=== PATIENT | male | born 1980 | race African-American/Black ===

== ENCOUNTER 2017-04-07 08:51 | Emergency (ER) | payer OTHER ==
[~2017-04-07] VITALS: Ht 188 cm; Wt 105.0 kg
[~2017-04-07 08:51] MED LIST: ALBUTEROL; IPRA3AMP IH
[2017-04-07] MEDS: ALBUTEROL (0.083%) 2.5MG/3ML NEB HHN SCH ×6 (09:00→11:59)
[2017-04-07] MEDS ORDERED: METHYLPREDNISOLONE SOD SUCC 125 MG/2 ML VIAL IV STA (09:01)
[2017-04-07] MEDS ORDERED: MAGNESIUM 2 G PREMIX 50 ML IV ONE (09:30)
[2017-04-07 09:37] LABS: BASOPHILS % 0.4 % (0.0-2.0); EOSINOPHILS % 5.3 % (0.0-5.0); HEMOGLOBIN. 13.4 g/dL (14.0-18.0); LYMPHOCYTES % 38.2 % (20.0-50.0); MEAN CORPUSCULAR HEMOGLOBIN 28.1 pg (28.0-32.0); MEAN CORPUSCULAR VOLUME 83.5 fL (80.0-94.0); MEAN PLATELET VOLUME 8.8 fl (7.4-10.4); MONOCYTES % 10.5 % (2.0-8.0); NEUTROPHILS % 45.6 % (40.0-76.0); PLATELET 270 x1000/uL (130-400); RED BLOOD CELL COUNT 4.79 mill/uL (4.7-6.1); RED CELL DISTRIBUTION WIDTH 13.5 % (11.6-14.6)
[2017-04-07 09:46] LABS: PROTHROMBIN TIME 10.4 sec
[2017-04-07 09:53] LABS: CARBON DIOXIDE 28 mEq/L (21-32); CHLORIDE 109 mEq/L (98-107)
[2017-04-07 12:18] VITALS: BP 142/80
== END 2017-04-07 14:30 | disposition home or self-care (01) ==
LOC: ER 09:21
DX: J45.901 Unspecified asthma with (acute) exacerbation (principal); R03.0 Elevated blood-pressure reading, without diagnosis of hypertension
CPT/HCPCS: 36415; 71010; 80053; 85025; 85610; 93005; 94640; 96365; 96375; 99285; J2930; J3475; J7611; Z7610

== ENCOUNTER 2017-07-31 05:12 | Emergency (ER) | payer OTHER ==
[~2017-07-31] VITALS: Ht 188 cm; Wt 105.0 kg
[~2017-07-31 05:12] MED LIST changes: -IPRA3AMP IH; +IPRA3AMP9 IH
[2017-07-31] MEDS ORDERED: IPRATROPIUM BROMIDE (0.02%) 0.5MG/2.5ML NEB HHN STA (05:29)
[2017-07-31] MEDS ORDERED: ALBUTEROL (0.083%) 2.5MG/3ML NEB HHN STA (05:29)
[2017-07-31] MEDS ORDERED: METHYLPREDNISOLONE SOD SUCC 125 MG/2 ML VIAL IV STA (05:29)
[2017-07-31] MEDS ORDERED: MAGNESIUM 2 G PREMIX 50 ML IV ONE (05:30)
[2017-07-31 06:03] LABS: BASOPHILS % 0.7 % (0.0-2.0); EOSINOPHILS % 4.3 % (0.0-5.0); HEMATOCRIT. 42.5 % (42.0-52.0); LYMPHOCYTES % 46.5 % (20.0-50.0); MEAN CORPUSCULAR HEMOGLOBIN 28.4 pg (28.0-32.0); MEAN CORPUSCULAR VOLUME 85.9 fL (80.0-94.0); MONOCYTES % 9.4 % (2.0-8.0); NEUTROPHILS % 39.1 % (40.0-76.0); PLATELET 234 x1000/uL (130-400); RED BLOOD CELL COUNT 4.95 mill/uL (4.7-6.1); RED CELL DISTRIBUTION WIDTH 13.7 % (11.6-14.6)
[2017-07-31 06:08] LABS: CARBON DIOXIDE 24 mEq/L (21-32); CHLORIDE 110 mEq/L (98-107)
[2017-07-31] MEDS ORDERED: SODIUM CHLORIDE 0.9% 1,000 ML IV SCH (06:15)
[2017-07-31 07:20] VITALS: BP 155/73
== END 2017-07-31 08:07 | disposition left against medical advice (07) ==
LOC: ER 05:12 → CANRESERV 07:01 → ENRESERV 07:01 → ER 08:07 → CANBEDREQ 08-01 10:28
DX: J96.90 Respiratory failure, unspecified, unspecified whether with hypoxia or hypercapnia (principal); J45.902 Unspecified asthma with status asthmaticus
CPT/HCPCS: 36415; 71010; 80048; 83605; 85025; 87040; 93005; 94640; 96365; 96375; 99285; J2930; J3475; J7611; Z7610; J7030

== ENCOUNTER 2017-09-14 11:44 | Emergency (ER) | payer OTHER ==
[~2017-09-14] VITALS: Ht 185.4 cm; Wt 104.0 kg
[2017-09-14] MEDS ORDERED: ALBUTEROL (0.083%) 2.5MG/3ML NEB HHN STA ×3 (12:18→14:58)
[2017-09-14] MEDS ORDERED: METHYLPREDNISOLONE SOD SUCC 125 MG/2 ML VIAL IV STA (12:18)
[2017-09-14] MEDS ORDERED: IPRATROPIUM BROMIDE (0.02%) 0.5MG/2.5ML NEB HHN STA ×3 (12:18→14:58)
[2017-09-14] MEDS ORDERED: MAGNESIUM 2 G PREMIX 50 ML IV STA (12:38)
[2017-09-14] MEDS ORDERED: METHYLPREDNISOLONE SOD SUCC 125 MG/2 ML VIAL IV NR (12:45)
[2017-09-14 15:00] VITALS: BP 134/82
[2017-09-14] MEDS ORDERED: ALBUTEROL (0.5%) 2.5MG/0.5ML NEB HHN ONE (15:27)
[2017-09-14] MEDS ORDERED: IPRATROPIUM BROMIDE (0.02%) 0.5MG/2.5ML NEB ONE (15:28)
[2017-09-14] MEDS ORDERED: PREDNISONE 20MG TABLET PO ONE (16:00)
== END 2017-09-14 16:30 | disposition home or self-care (01) ==
LOC: ER 12:27
DX: J45.901 Unspecified asthma with (acute) exacerbation (principal); Z87.828 Personal history of other (healed) physical injury and trauma
CPT/HCPCS: 71010; 93005; 94640; 96365; 96375; 99284; J2930; J3475; J7512; J7611; Z7610

== ENCOUNTER 2019-12-18 22:23 | Emergency (ER) | payer SELFPAY ==
[~2019-12-18] VITALS: Ht 185.4 cm; Wt 82.0 kg
[2019-12-18] MEDS ORDERED: SODIUM CHLORIDE 0.9% 1,000 ML IV ONE (22:44)
[2019-12-18] MEDS ORDERED: METHYLPREDNISOLONE SOD SUCC 125 MG/2 ML VIAL IV STA (22:44)
[2019-12-18] MEDS ORDERED: IPRATROPIUM BROMIDE (0.02%) 0.5MG/2.5ML NEB HHN STA (22:44)
[2019-12-18] MEDS ORDERED: MAGNESIUM 2 G PREMIX 50 ML IV ONE (22:45)
[2019-12-18 23:29] LABS: BASOPHILS % 0.7 % (0.0-2.0); EOSINOPHILS % 0.1 % (0.0-5.0); HEMATOCRIT. 45.2 % (42.0-52.0); HEMOGLOBIN. 15.1 g/dL (14.0-18.0); LYMPHOCYTES % 12.3 % (20.0-50.0); MEAN CORPUSCULAR VOLUME 86.5 fL (80.0-94.0); MEAN PLATELET VOLUME 9.6 fl (7.4-10.4); MONOCYTES % 7.7 % (2.0-8.0); NEUTROPHILS % 79.2 % (40.0-76.0); PLATELET 247 x1000/uL (130-400); RED BLOOD CELL COUNT 5.23 mill/uL (4.7-6.1); RED CELL DISTRIBUTION WIDTH 14.1 % (11.6-14.6)
[2019-12-18] MEDS: ALBUTEROL (0.083%) 2.5MG/3ML NEB HHN SCH ×2 (23:32→23:33)
[2019-12-18 23:42] LABS: CHLORIDE 105 mEq/L (98-107)
[2019-12-19] MEDS: ALBUTEROL (0.083%) 2.5MG/3ML NEB HHN SCH (00:29)
[2019-12-19 02:25] VITALS: BP 127/78
== END 2019-12-19 02:26 | disposition home or self-care (01) ==
LOC: ER 22:23
DX: J45.901 Unspecified asthma with (acute) exacerbation (principal); Z98.890 Other specified postprocedural states
CPT/HCPCS: 36415; 71045; 80053; 85025; 94640; 96365; 96366; 96375; 99285; J2930; J3475; J7030; Z7610; 99284

== ENCOUNTER 2021-06-05 10:26 | Emergency (ER) | payer MEDICAID ==
[~2021-06-05] VITALS: Ht 188 cm; Wt 113.0 kg
[2021-06-05] MEDS ORDERED: ALBUTEROL (0.083%) 2.5MG/3ML NEB HHN STA (11:00)
[2021-06-05] MEDS ORDERED: IPRATROPIUM BROMIDE (0.02%) 0.5MG/2.5ML NEB HHN STA (11:00)
[2021-06-05] MEDS ORDERED: PREDNISONE 20MG TABLET PO STA (11:00)
[2021-06-05] MEDS ORDERED: ALBUTEROL (0.5%) 2.5MG/0.5ML NEB HHN ONE (11:39)
[2021-06-05] MEDS ORDERED: ALBUTEROL (0.083%) 2.5MG/3ML NEB ONE (11:39)
[2021-06-05] MEDS ORDERED: IPRATROPIUM BROMIDE (0.02%) 0.5MG/2.5ML NEB ONE (11:40)
[2021-06-05] MEDS ORDERED: MAGNESIUM 2 G PREMIX 50 ML IV STA (12:25)
[2021-06-05 13:01] LABS: EOSINOPHILS % 5.2 % (0.0-5.0); HEMATOCRIT. 43.5 % (42.0-52.0); HEMOGLOBIN. 14.6 g/dL (14.0-18.0); LYMPHOCYTES % 24.2 % (20.0-50.0); MEAN CORPUSCULAR HEMOGLOBIN 28.2 pg (28.0-32.0); MEAN CORPUSCULAR VOLUME 83.9 fL (80.0-94.0); MEAN PLATELET VOLUME 9.2 fl (7.4-10.4); MONOCYTES % 8.2 % (2.0-8.0); NEUTROPHILS % 61.4 % (40.0-76.0); PLATELET 198 x1000/uL (130-400); RED BLOOD CELL COUNT 5.18 mill/uL (4.7-6.1); RED CELL DISTRIBUTION WIDTH 14.5 % (11.6-14.6)
[2021-06-05 13:08] LABS: CHLORIDE 109 mEq/L (98-107)
[2021-06-05 14:08] LABS: CLARITY URINE CLEAR (CLEAR); COLOR URINE YELLOW (YELLOW); KETONES URINE NEGATIVE (NEGATIVE); LEUKOCYTE ESTERASE URINE NEGATIVE (NEGATIVE); NITRITE URINE NEGATIVE (NEGATIVE); OCCULT BLOOD URINE TRACE (NEGATIVE); PH URINE 7.5 (4.5-8.0); PROTEIN URINE NEGATIVE (NEGATIVE); SPECIFIC GRAVITY URINE 1.011 (1.005-1.030); UROBILINOGEN URINE 0.2 E.U./dL (0.2-1.0)
[2021-06-05] MEDS ORDERED: P50 PO (14:15)
[2021-06-05 14:27] VITALS: BP 136/80
== END 2021-06-05 14:45 | disposition home or self-care (01) ==
LOC: ER 10:26
DX: J45.901 Unspecified asthma with (acute) exacerbation (principal)
CPT/HCPCS: 36415; 71045; 80053; 81003; 85025; 94640; 96365; 99284; J3475; J7512; Z7610

== ENCOUNTER 2021-07-12 18:30 | Emergency (ER) | payer MEDICAID ==
[~2021-07-12] VITALS: Ht 185.4 cm; Wt 117.0 kg
[~2021-07-12 18:30] MED LIST changes: +P50 PO
[2021-07-12] MEDS ORDERED: METHYLPREDNISOLONE SOD SUCC 125 MG/2 ML VIAL IV STA (18:43)
[2021-07-12] MEDS ORDERED: IPRATROPIUM BROMIDE (0.02%) 0.5MG/2.5ML NEB HHN STA (18:43)
[2021-07-12] MEDS ORDERED: SODIUM CHLORIDE 0.9% 1,000 ML IV ONE (19:00)
[2021-07-12 19:14] LABS: BASOPHILS % 0.8 % (0.0-2.0); HEMATOCRIT. 42.7 % (42.0-52.0); HEMOGLOBIN. 14.6 g/dL (14.0-18.0); LYMPHOCYTES % 20.5 % (20.0-50.0); MEAN CORPUSCULAR HEMOGLOBIN 28.6 pg (28.0-32.0); MEAN CORPUSCULAR VOLUME 83.8 fL (80.0-94.0); MEAN PLATELET VOLUME 9.2 fl (7.4-10.4); MONOCYTES % 6.4 % (2.0-8.0); NEUTROPHILS % 70.3 % (40.0-76.0); PLATELET 238 x1000/uL (130-400); RED BLOOD CELL COUNT 5.09 mill/uL (4.7-6.1); RED CELL DISTRIBUTION WIDTH 14.1 % (11.6-14.6)
[2021-07-12] MEDS: ALBUTEROL (0.083%) 2.5MG/3ML NEB HHN SCH ×2 (19:17→20:42)
[2021-07-12 19:22] LABS: CHLORIDE 109 mEq/L (98-107)
[2021-07-12 19:25] LABS: ETHANOL BLOOD < 10 mg/dL
[2021-07-12 19:43] LABS: *BENZODIAZEPINES SCREEN URINE NEGATIVE (NEGATIVE); *COCAINE SCREEN URINE NEGATIVE (NEGATIVE); METHADONE URINE SCREEN NEGATIVE (NEGATIVE)
[2021-07-12 19:44] LABS: *AMPHETAMINES SCREEN URINE NEGATIVE (NEGATIVE); *BARBITURATES SCREEN URINE NEGATIVE (NEGATIVE); OPIATES URINE SCREEN NEGATIVE (NEGATIVE); PHENCYCLIDINE URINE SCREEN NEGATIVE (NEGATIVE)
[2021-07-12 19:45] LABS: CANNABINOID URINE SCREEN NEGATIVE (NEGATIVE)
[2021-07-12] MEDS ORDERED: PRED10TA MT (20:40)
[2021-07-12] MEDS ORDERED: ALBU6.7H9 INH (20:40)
[2021-07-12 20:52] VITALS: BP 163/94
== END 2021-07-12 21:05 | disposition home or self-care (01) ==
LOC: ER 18:30
DX: J45.909 Unspecified asthma, uncomplicated (principal); I49.9 Cardiac arrhythmia, unspecified; Z20.822 Contact with and (suspected) exposure to COVID-19; Z98.890 Other specified postprocedural states; Z13.9 Encounter for screening, unspecified
CPT/HCPCS: 36415; 71045; 80053; 80305; 80320; 85025; 87426; 93005; 94640; 96361; 96374; 99285; J2930; J7030; Z7610; G0480